=== PATIENT | female | born 1960 | race Caucasian/White ===

== ENCOUNTER → 2018-03-01 | Day surgery (SDC) | payer OTHER ==
[~2018-03-01] MED LIST: ACID CONTROLLER20 MG PO; CALTRATE 600+D1 EAC1 PO; ENALAPRIL MALEA10 MG PO; FOLIC ACID1 MG
== END | disposition home or self-care (01) ==
LOC: ADM 02-21 10:30 → CIR.AMB 07:00
DX: M75.02 Adhesive capsulitis of left shoulder (principal); T84.89XA Other specified complication of internal orthopedic prosthetic devices, implants and grafts, initial encounter